=== PATIENT | female | born 1975 | race Caucasian/White ===

== ENCOUNTER 2024-05-24 08:36 | Outpatient (AMB) | payer MEDICARE, MEDICAID, SELFPAY ==
--- NOTE | 2024-05-24 08:43 | A.OFFVIS_ITS ---
VS Expanded 05/24/24 08:44 05/25/24 23:04 Height 5 ft 2.5 in 5 ft 2.5 in Weight 157 lb 10.088 oz 158 lb BMI 28.4 28.4 Intake Visit Reasons: lipid disorder Nutrition Presentation Details: Pt presetns for MNT for HDL Pt was referred by PCP BS Monitoring Most Recent Diabetes Results: No Data to Display ICN-[id number].Jeor Equation Height: 5 ft 2.5 in Weight: 158 lb Resting Metabolic Rate: 1310.99 Calculated Activity Level: Sedentary Calories Needed to Maintain Weight: 1573.19 Diagnosis Nutrition problem #1: food nutri know defi As related to (etiology) #1: diagnosis As evidenced by (sign/symptom) #1: knowledge deficit of diet Assessment & Plan Assessment & Plan (1) Lipid disorder: Code(s): E78.9 - Disorder of lipoprotein metabolism, unspecified Category: Medical Plan: Wt: 72 Kg ( 06/15 ) Est kcal needs as per MSJ: 1600 (40% carb, 30% protein/fat) Est fluid needs as per 25-30 ml/d: 2200 Est prot per day as per 1 g/kg bw: 72 Recommend fiber intake : 8-10 g per day and gradually increase to 25-28 g per day for women and 35-38 g for men or as tolerated Recommend sodium intake per day : less than 2300 mg Educated patient on: ( R = reviewed V = verbalizes understanding N/R = needs review N/A = not applicable * Food sources of carbohydrate, adequate serving sizes and its role in various health conditions: R V N/R * Differences between complex carbohydrates a simple carbohydrates, role of fiber in diet: R V N/R * Lean protein sources of foods: R V NR * Differences between types of fats and role in diet (mono on saturated fat fatty acids, saturated fatty acids, trans fats): R * Food sources of sodium in salt and healthy modifications for heart health in kidney health: R V R/V * Vitamins and minerals: R V N/R * Healthy plate method concept: R V N/R * Physical activity: Benefits a precaution: R V N/R * Patient Instructions: Reduce foods high in saturated fats, see list of food option Coding Level of Care Code Nutr Indiv Intake (64182) Diagnoses Lipid disorder E78.9 Time Spent (min) 30
[2024-05-24 08:44] VITALS: BMI 28.4
[2024-05-25 23:04] VITALS: BMI 28.4
== END 2024-05-24 09:27 | disposition home or self-care (01) ==
PROVIDERS: Visit Provider Dietitian, Registered
DX: E78.9 Disorder of lipoprotein metabolism, unspecified (principal)

== ENCOUNTER → 2024-05-24 08:36 | Outpatient (BNVA) | payer MEDICARE, MEDICAID, SELFPAY | PROVIDERS: Visit Provider Dietitian, Registered | DX: E78.9 Disorder of lipoprotein metabolism, unspecified (principal) | CPT/HCPCS: 97802 ==

== ENCOUNTER → 2024-07-19 08:29 | Outpatient (AMB) | payer MEDICAID, MEDICARE, SELFPAY ==
--- NOTE | 2024-07-19 08:46 | A.OFFVIS_ITS ---
VS Expanded 07/19/24 08:49 Height 5 ft 2.5 in Weight 157 lb BMI 28.3 Intake Visit Reasons: Lipid disorder Nutrition Presentation Details: Pt presents for MNT for hyperlipidemia Pt reports doing well, working on reducing high fat foods and trying new foods with fiber. No questions or concerns expressed at this time BS Monitoring Most Recent Diabetes Results: No Data to Display Assessment & Plan Assessment & Plan (1) Lipid disorder: Code(s): E78.9 - Disorder of lipoprotein metabolism, unspecified Category: Medical Plan: Wt: 72 Kg ( 06/15 ), 07/16 Est kcal needs as per MSJ: 1600 (40% carb, 30% protein/fat) Est fluid needs as per 25-30 ml/d: 2200 Est prot per day as per 1 g/kg bw: 72 Recommend fiber intake : 8-10 g per day and gradually increase to 25-28 g per day for women and 35-38 g for men or as tolerated Recommend sodium intake per day : less than 2300 mg Educated patient on: ( R = reviewed V = verbalizes understanding N/R = needs review N/A = not applicable * low saturated fats and high fiber foods Patient Instructions: Continue working on reducing on saturated fats types of foods (fried, amount of butter, cheese, processed foods) Include fiber rich foods in diet (oats, seeds, nuts) Continue physically active as able Coding Level of Care Code Nutr Indiv Subseq (05456) Diagnoses Lipid disorder E78.9 Time Spent (min) 20
[2024-07-19 08:49] VITALS: BMI 28.3
== END ==
PROVIDERS: Visit Provider Dietitian, Registered
DX: E78.9 Disorder of lipoprotein metabolism, unspecified (principal)

== ENCOUNTER → 2024-07-19 08:29 | Outpatient (BNVA) | payer MEDICAID, MEDICARE, SELFPAY | PROVIDERS: Visit Provider Dietitian, Registered | DX: E78.9 Disorder of lipoprotein metabolism, unspecified (principal) | CPT/HCPCS: 97803 ==